=== PATIENT | male | born 1980 | race American Indian/Alaskan Native ===

== ENCOUNTER 2019-09-21 20:47 | Emergency (ER) | payer SELFPAY ==
[2019-09-21 21:11] VITALS: BP 101/65
== END 2019-09-21 22:30 | disposition left against medical advice (07) ==
LOC: ED 20:47
DX: R07.89 Other chest pain (principal); Z53.21 Procedure and treatment not carried out due to patient leaving prior to being seen by health care provider

== ENCOUNTER 2020-09-14 11:59 | Emergency (ER) | payer SELFPAY ==
[2020-09-14] MEDS ORDERED: ASPIRIN 325 MG TAB PO ONE (12:21)
[2020-09-14] MEDS ORDERED: SODIUM CHLORIDE 0.9% 1000 ML 1,000 ML IV ONE (12:21)
--- NOTE | 2020-09-14 12:22 | Event Note ---
ED Screening Note Date of service: 09/14/20 Time: 12:20 ED Screening Note: 39-year-old male with a history of tobacco abuse but no other significant past history presents to the ER today complaint of left-sided chest pain. Patient states that has been having the left-sided chest pain off and on for the past year. He states that he has never been evaluated for it before. He states that or concerning was that 3 weeks ago he started having intermittent lightheadedness not associated with the pain but he states that now he is having lightheadedness and the chest pain he decided to come in to get checked. He reports intermittent shortness of breath. He denies nausea, vomiting or diaphoresis. Patient is also a long-distance truck dispatcher. Denies any family history of coronary artery disease. This initial assessment/diagnostic orders/clinical plan/treatment(s) is/are subject to change based on patients health status, clinical progression and re- assessment by fellow clinical providers in the ED. Further treatment and workup at subsequent clinical providers discretion. Patient/guardian urged not to elope from the ED as their condition may be serious if not clinically assessed and managed. Initial orders include: Cardiac work-up including a D-dimer
[2020-09-14 12:39] LABS: Basophils % (Auto) 0.6 % (0.0-1.8); Eosinophils # (Auto) 0.2 K/mm3 (0.0-0.4); Eosinophils % (Auto) 5.6 % (0.0-4.3); Lymphocytes # (Auto) 1.8 K/mm3 (1.2-5.4); Lymphocytes % (Auto) 41.4 % (13.4-35.0); Mean Corpuscular HGB Conc 36 % (32-34); Mean Corpuscular Volume 95 fl (84-94); Monocytes # (Auto) 0.3 K/mm3 (0.0-0.8); Monocytes % (Auto) 6.5 % (0.0-7.3); Platelet Count 216 K/mm3 (140-440); Red Blood Count 4.09 M/mm3 (3.65-5.03); Red Cell Distribution Width 12.3 % (13.2-15.2)
[2020-09-14 12:46] LABS: Hematocrit 38.8 % (35.5-45.6); Hemoglobin 14.1 gm/dl (11.8-15.2)
[2020-09-14 12:49] LABS: INR 1.02 (0.87-1.13)
[2020-09-14 12:50] LABS: Partial Thromboplastin Time 31.4 Sec. (24.2-36.6)
--- NOTE | 2020-09-14 13:00 | XRay Report ---
CHEST 2 VIEWS INDICATION: Chest Pain. COMPARISON: None FINDINGS: SUPPORT DEVICES: None. HEART: Within normal limits. LUNGS/PLEURA: No acute air space or interstitial disease. No pneumothorax. ADDITIONAL FINDINGS: None. IMPRESSION: 1. No acute findings. Signer Name: Tiago Barrera MD Signed: 09/14/2020 12:56 PM Workstation Name: [id number]
--- NOTE | 2020-09-14 13:00 | Emergency Department Report ---
ED Chest Pain HPI - General Chief Complaint: Chest Pain Stated Complaint: CHEST PAIN/LIGHT HEAD Time Seen by Provider: 09/14/20 12:17 Source: patient Mode of arrival: Ambulatory Limitations: No Limitations - History of Present Illness Initial Comments: This is a 39-year-old male who presents to the emergency department for evaluation of left breast tightness. He states that it occurs at rest and has been going on for years. He actually presented to the emergency department about a year ago for similar complaint. However he states that it was too c rowded and he was not seen by a physician at left. He does not have a family physician. He is not been prior evaluated by a excel expert. Patient states that these episodes of chest tightness are not associated with a respiratory variation in pain, dyspnea, cough, nausea, vomiting, sweating. He did complain of some generalized lightheadedness to triage and medical screening but not to me. The patient has been previously concerned about these episodes of chest pain because he is a smoker. 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 He has had no leg pain or swelling. He has no history of DVT, PE or CAD. Likewise he has no family history of any of the above. He has no family physician either. MD Complaint: chest pain -: Gradual, year(s) Onset: during rest Pain Location: left chest (Left breast) Pain Radiation: none Quality: tightness Consistency: intermittent (Infrequently), now resolved Improves With: other (States it occurs when he smokes) Worsens With: other (Recurrence with smoking) re: denies: nausea, vomting, diaphoresis Other Symptoms: denies: cough, fever, syncope Treatments Prior to Arrival: none Aspirin use within the Past 7 Days: (0) No - Related Data Allergies Allergy/AdvReac Type Severity Reaction Status Date / Time No Known Allergies Allergy Unverified 09/14/20 12:15 Heart Score - HEART Score History: Slightly suspicious EKG: Normal Age: < 45 Risk factors: 1-2 risk factors Troponin: < normal limit HEART Score: 1 - Critical Actions Critical Actions: 0-3 pts:0.9-1.7%risk of adverse cardiac event.Candidate for discharge ED Review of Systems ROS: Stated complaint: CHEST PAIN/LIGHT HEAD Other details as noted in HPI Constitutional: denies: chills, fever Eyes: denies: eye pain, eye discharge, vision change ENT: denies: ear pain, throat pain Respiratory: denies: cough, shortness of breath, wheezing Cardiovascular: chest pain. denies: palpitations Endocrine: no symptoms reported Gastrointestinal: denies: abdominal pain, nausea, diarrhea Genitourinary: denies: urgency, dysuria Musculoskeletal: denies: back pain, joint swelling, arthralgia Skin: denies: rash, lesions Neurological: denies: headache, weakness, paresthesias Psychiatric: denies: anxiety, depression Hematological/Lymphatic: denies: easy bleeding, easy bruising ED Past Medical Hx - Past Medical History Previous Medical History?: No - Social History Smoking Status: Current Every Day Smoker Substance Use Type: Marijuana, Other (Denies other substance abuse) ED Physical Exam - General Limitations: No Limitations General appearance: alert, in no apparent distress - Head Head exam: Present: atraumatic, normocephalic - Eye Eye exam: Present: normal appearance. Absent: scleral icterus - ENT ENT exam: Present: mucous membranes moist - Neck Neck exam: Present: normal inspection - Respiratory Respiratory exam: Present: normal lung sounds bilaterally. Absent: respiratory distress - Cardiovascular Cardiovascular Exam: Present: regular rate, normal rhythm. Absent: systolic murmur, diastolic murmur, rubs, gallop - GI/Abdominal GI/Abdominal exam: Present: soft, normal bowel sounds. Absent: distended, tenderness, guarding, rebound - Rectal Rectal exam: Present: deferred - Extremities Exam Extremities exam: Present: normal inspection, normal capillary refill, other (Dorsalis pedis and posterior tibial pulses are 2+/2+ bilaterally). Absent: pedal edema, joint swelling, calf tenderness - Back Exam Back exam: Present: normal inspection - Neurological Exam Neurological exam: Present: alert, oriented X3, CN II-XII intact. Absent: motor sensory deficit - Psychiatric Psychiatric exam: Present: normal affect, normal mood - Skin Skin exam: Present: warm, dry, intact, normal color. Absent: rash ED Course Vital Signs 09/14/20 09/14/20 09/14/20 12:12 12:58 13:01 Temperature 98 F Pulse Rate 80 65 Respiratory 18 16 18 Rate Blood Pressure 122/79 110/70 O2 Sat by Pulse 98 98 98 Oximetry 09/14/20 09/14/20 13:15 13:26 Temperature Pulse Rate 65 Respiratory 18 18 Rate Blood Pressure 102/68 O2 Sat by Pulse 98 99 Oximetry - Reevaluation(s) Reevaluation #1: No complaints of recurrent pain. The patient was not inclined to repeat his troponin. I believe he has agreed to do so. Presuming that is negative he will certainly stratify to outpatient follow-up. Smoking cessation discussed. Risk factor reduction discussed. Daily aspirin recommended. 09/14/20 14:44 09/14/20 14:44 ANTONY score - Antony Score Age > 65: (0) No Aspirin use within the Past 7 Days: (0) No 3 or more CAD Risk Factors: (0) No 2 or more Angina events in past 24 hrs: (0) No Known CAD with more than 50% Stenosis: (0) No Elevated Cardiac Markers: (0) No ST Deviation Greater than 0.5mm: (0) No ANTONY Score: 0 ED Medical Decision Making - Lab Data Result diagrams: 09/14/20 12:28 09/14/20 14:32 Laboratory Results - last 24 hr 09/14/20 09/14/20 09/14/20 12:28 12:28 12:28 WBC 4.4 L RBC 4.09 Hgb 14.1 Hct 38.8 MCV 95 H MCH 34 H MCHC 36 H RDW 12.3 L Plt Count 216 Lymph % (Auto) 41.4 H Jackson % (Auto) 6.5 Eos % (Auto) 5.6 H Baso % (Auto) 0.6 Lymph # (Auto) 1.8 Jackson # (Auto) 0.3 Eos # (Auto) 0.2 Baso # (Auto) 0.0 Seg Neutrophils % 45.9 Seg Neutrophils # 2.0 PT 13.2 INR 1.02 APTT 31.4 D-Dimer 151.77 Troponin T < 0.010 Laboratory Results - last 24 hr 09/14/20 09/14/20 09/14/20 12:28 12:28 12:28 WBC 4.4 L RBC 4.09 Hgb 14.1 Hct 38.8 MCV 95 H MCH 34 H MCHC 36 H RDW 12.3 L Plt Count 216 Lymph % (Auto) 41.4 H Jackson % (Auto) 6.5 Eos % (Auto) 5.6 H Baso % (Auto) 0.6 Lymph # (Auto) 1.8 Jackson # (Auto) 0.3 Eos # (Auto) 0.2 Baso # (Auto) 0.0 Seg Neutrophils % 45.9 Seg Neutrophils # 2.0 PT 13.2 INR 1.02 APTT 31.4 D-Dimer 151.77 Troponin T < 0.010 Laboratory Results - last 24 hr 09/14/20 09/14/20 09/14/20 12:28 12:28 12:28 WBC 4.4 L RBC 4.09 Hgb 14.1 Hct 38.8 MCV 95 H MCH 34 H MCHC 36 H RDW 12.3 L Plt Count 216 Lymph % (Auto) 41.4 H Jackson % (Auto) 6.5 Eos % (Auto) 5.6 H Baso % (Auto) 0.6 Lymph # (Auto) 1.8 Jackson # (Auto) 0.3 Eos # (Auto) 0.2 Baso # (Auto) 0.0 Seg Neutrophils % 45.9 Seg Neutrophils # 2.0 PT 13.2 INR 1.02 APTT 31.4 D-Dimer 151.77 Sodium Potassium Chloride Carbon Dioxide Anion Gap BUN Creatinine Estimated GFR BUN/Creatinine Ratio Glucose Calcium Troponin T < 0.010 09/14/20 09/14/20 14:32 14:32 WBC RBC Hgb Hct MCV MCH MCHC RDW Plt Count Lymph % (Auto) Jackson % (Auto) Eos % (Auto) Baso % (Auto) Lymph # (Auto) Jackson # (Auto) Eos # (Auto) Baso # (Auto) Seg Neutrophils % Seg Neutrophils # PT INR APTT D-Dimer Sodium 139 Potassium 4.2 Chloride 106.3 Carbon Dioxide 27 Anion Gap 10 BUN 14 Creatinine 0.8 Estimated GFR > 60 BUN/Creatinine Ratio 18 Glucose 91 Calcium 8.2 L Troponin T < 0.010 - EKG Data -: EKG Interpreted by Nh EKG shows normal: sinus rhythm, axis, intervals, QRS complexes, ST-T waves Rate: normal - EKG Data Interpretation: other (Early repolarization, no acute findings) - Radiology Data Radiology results: report reviewed (No acute process) Critical care attestation.: If time is entered above; I have spent that time in minutes in the direct care of this critically ill patient, excluding procedure time. ED Disposition Clinical Impression: Atypical chest pain Disposition: - TO HOME OR SELFCARE Is pt being admited?: No Does the pt Need Aspirin: No Condition: Stable Instructions: Steps to Quit Smoking, [id number], Nonspecific Chest Pain, Adult, [id number], Chest Pain (ED) Additional Instructions: Would recommend daily baby aspirin. Certainly smoking cessation will decrease her risk of heart problems and various other medical conditions. See referrals for follow-up. Return to the emergency department any prolonged chest pain, acute change or symptom. Dr. Cruz is a excel expert. Dr. Perry is a primary care physician. Referrals: FER HELTON MD [Primary Care Provider] - 3-5 Days ALFIE CRUZ MD [Staff Physician] - 3-5 Days SANJIV PERRY MD [Staff Physician] - 3-5 Days Time of Disposition: 15:08
[2020-09-14 15:03] LABS: BUN/Creatinine Ratio 18; Blood Urea Nitrogen 14 mg/dL (9-20); Calcium 8.2 mg/dL (8.4-10.2); Hemolysis Index 10
[2020-09-14 15:28] VITALS: BP 106/73
== END 2020-09-14 15:36 | disposition home or self-care (01) ==
LOC: ED 11:59
DX: R07.89 Other chest pain (principal); F17.200 Nicotine dependence, unspecified, uncomplicated; F12.90 Cannabis use, unspecified, uncomplicated
CPT/HCPCS: 36415; 71046; 80048; 84484; 85025; 85379; 85610; 85730; 93005; 96360; 99284; J7030

== ENCOUNTER 2021-01-19 12:07 | Emergency (ER) | payer SELFPAY ==
--- NOTE | 2021-01-19 12:54 | Event Note ---
ED Screening Note Date of service: 01/19/21 Time: 12:54 ED Screening Note: Patient complains of chest pain and dizziness for 6 months Denies shortness of breath No past medical history per patient This initial assessment/diagnostic orders/clinical plan/treatment(s) is/are subject to change based on patients health status, clinical progression and re- assessment by fellow clinical providers in the ED. Further treatment and workup at subsequent clinical providers discretion. Patient/guardian urged not to elope from the ED as their condition may be serious if not clinically assessed and managed. Initial orders include: Labs EKG Chest x-ray
--- NOTE | 2021-01-19 13:32 | XRay Report ---
CHEST 2 VIEWS INDICATION / CLINICAL INFORMATION: chest pain. COMPARISON: 09/14/2020 FINDINGS: SUPPORT DEVICES: None. HEART / MEDIASTINUM: No significant abnormality. LUNGS / PLEURA: No significant pulmonary or pleural abnormality. No pneumothorax. ADDITIONAL FINDINGS: No significant additional findings. IMPRESSION: 1. No acute findings. Signer Name: Manoj Burris MD Signed: 01/19/2021 1:27 PM Workstation Name: [id number]
[2021-01-19 14:16] LABS: Basophils # (Auto) 0.1 K/mm3 (0.0-0.1); Eosinophils # (Auto) 0.2 K/mm3 (0.0-0.4); Eosinophils % (Auto) 3.6 % (0.0-4.3); Hematocrit 37.9 % (35.5-45.6); Hemoglobin 13.3 gm/dl (11.8-15.2); Lymphocytes # (Auto) 1.6 K/mm3 (1.2-5.4); Lymphocytes % (Auto) 32.6 % (13.4-35.0); Mean Corpuscular HGB Conc 35 % (32-34); Mean Corpuscular Volume 94 fl (84-94); Monocytes # (Auto) 0.3 K/mm3 (0.0-0.8); Monocytes % (Auto) 5.3 % (0.0-7.3); Platelet Count 225 K/mm3 (140-440); Red Blood Count 4.02 M/mm3 (3.65-5.03); Red Cell Distribution Width 12.1 % (13.2-15.2)
[2021-01-19 14:30] LABS: Alanine Aminotransferase 24 units/L (7-56); Albumin 4.8 g/dL (3.9-5); Blood Urea Nitrogen 20 mg/dL (9-20); Calcium 8.7 mg/dL (8.4-10.2); Hemolysis Index 4
[2021-01-19 14:31] LABS: BUN/Creatinine Ratio 29
--- NOTE | 2021-01-19 21:57 | Emergency Department Report ---
HPI - General Chief Complaint: Chest Pain Time Seen by Provider: 01/19/21 12:50 - HPI HPI: Room 25 The patient is a 40-year-old male present with a chief complaint of chest pain. The patient states he came to the emergency department for 2 reasons. Patient states first he has had intermittent lightheadedness and dizziness for the past 6 months. Patient states he came to the emergency department for this in the past and was told to stop smoking cigarettes. The patient states he also came into the ED because had chest pain for 1 day after smoking marijuana last night. Patient states he is never had a stress test or cardiac catheterization ED Past Medical Hx - Past Medical History Previous Medical History?: No - Surgical History Past Surgical History?: No - Family History Family history: no significant - Social History Smoking Status: Former Smoker (None x2 months) Substance Use Type: Alcohol (Occasional), Marijuana - Medications Home Medications: Home Medications Medication Instructions Recorded Confirmed Last Taken Type Famotidine [Pepcid] 20 mg PO BID #30 tablet 01/20/21 Unknown Rx Nicotine [Habitrol] 14 mg TD DAILY #20 patch 01/20/21 Unknown Rx ED Review of Systems ROS: Stated complaint: CHEST PAIN Other details as noted in HPI Constitutional: no symptoms reported Eyes: denies: eye pain ENT: denies: throat pain Respiratory: denies: shortness of breath Cardiovascular: chest pain Endocrine: no symptoms reported Gastrointestinal: denies: nausea Genitourinary: denies: dysuria Musculoskeletal: denies: back pain Neurological: denies: headache Physical Exam - Physical Exam Vital Signs: Vital Signs 01/19/21 01/19/21 12:47 21:48 Temperature 98.7 F 98.4 F Pulse Rate 84 78 Respiratory 18 18 Rate Blood Pressure 130/83 Blood Pressure 124/80 [Left] O2 Sat by Pulse 99 96 Oximetry Physical Exam: GENERAL: The patient is well-developed well-nourished male lying on stretcher not appearing to be in acute distress. [] HEENT: Normocephalic. Atraumatic. Extraocular motions are intact. Patient has moist mucous membranes. NECK: Supple. No meningitic signs are noted. There is no adenopathy noted. CHEST/LUNGS: Clear to auscultation. There is no respiratory distress noted. HEART/CARDIOVASCULAR: Regular. There is no tachycardia. There is no gallop rub or murmur. ABDOMEN: Abdomen is soft, nontender. Patient has normal bowel sounds. There is no abdominal distention. SKIN: There is no rash. There is no edema. There is no diaphoresis. NEURO: The patient is awake, alert, and oriented. The patient is cooperative. The patient has no focal neurologic deficits. The patient has normal speech. Cranial nerves II through XII grossly intact MUSCULOSKELETAL: There is no evidence of acute injury. ED Course Vital Signs 01/19/21 01/19/21 12:47 21:48 Temperature 98.7 F 98.4 F Pulse Rate 84 78 Respiratory 18 18 Rate Blood Pressure 130/83 Blood Pressure 124/80 [Left] O2 Sat by Pulse 99 96 Oximetry ED Medical Decision Making - Lab Data Result diagrams: 01/19/21 13:31 01/19/21 13:31 Laboratory Tests 01/19/21 01/19/21 01/19/21 13:31 13:31 13:31 WBC 4.9 RBC 4.02 Hgb 13.3 Hct 37.9 MCV 94 MCH 33 H MCHC 35 H RDW 12.1 L Plt Count 225 Lymph % (Auto) 32.6 Grant % (Auto) 5.3 Eos % (Auto) 3.6 Baso % (Auto) 2.0 H Lymph # (Auto) 1.6 Grant # (Auto) 0.3 Eos # (Auto) 0.2 Baso # (Auto) 0.1 Seg Neutrophils % 56.5 Seg Neutrophils # 2.8 D-Dimer Sodium 141 Potassium 4.2 Chloride 105.0 Carbon Dioxide 25 Anion Gap 15 BUN 20 Creatinine 0.7 L Estimated GFR > 60 BUN/Creatinine Ratio 29 Glucose 128 H Calcium 8.7 Total Bilirubin 0.50 AST 26 ALT 24 Alkaline Phosphatase 79 Troponin T < 0.010 < 0.010 Total Protein 7.4 Albumin 4.8 Albumin/Globulin Ratio 1.8 01/19/21 01/19/21 21:57 21:57 WBC RBC Hgb Hct MCV MCH MCHC RDW Plt Count Lymph % (Auto) Grant % (Auto) Eos % (Auto) Baso % (Auto) Lymph # (Auto) Grant # (Auto) Eos # (Auto) Baso # (Auto) Seg Neutrophils % Seg Neutrophils # D-Dimer 424.60 H Sodium Potassium Chloride Carbon Dioxide Anion Gap BUN Creatinine Estimated GFR BUN/Creatinine Ratio Glucose Calcium Total Bilirubin AST ALT Alkaline Phosphatase Troponin T < 0.010 Total Protein Albumin Albumin/Globulin Ratio - EKG Data -: EKG Interpreted by Me EKG shows normal: sinus rhythm Rate: normal - EKG Data When compared to previous EKG there are: no significant change Interpretation: unchanged when compared t (09/14/2020) - Radiology Data Radiology results: report reviewed (Chest x-ray, CT chest), image reviewed (Chest x-ray, CT chest) interpreted by me: Chest x-ray-no focal infiltrates, no pneumothorax. No foreign body seen [address] [address] XRay Report Signed Patient: KIAN HALL MR#: [id number] : 0 1980 Acct:[id number] Age/Sex: 40 / M ADM Date: 01/19/21 Loc: ED Attending Dr: Ordering Physician: PATRICIA LIZARRAGA Date of Service: 01/19/21 Procedure(s): XR chest routine 2V Accession Number(s): [id number] cc: PATRICIA LIZARRAGA Fluoro Time In Minutes: CHEST 2 VIEWS INDICATION / CLINICAL INFORMATION: chest pain. COMPARISON: 09/14/2020 FINDINGS: SUPPORT DEVICES: None. HEART / MEDIASTINUM: No significant abnormality. LUNGS / PLEURA: No significant pulmonary or pleural abnormality. No pneumothorax. ADDITIONAL FINDINGS: No significant additional findings. IMPRESSION: 1. No acute findings. Signer Name: Manoj Burris MD Signed: 01/19/2021 1:27 PM Workstation Name: [id number] Transcribed By: ROLLY Dictated By: Manoj Burris MD Electronically Authenticated By: Manoj Burris MD Signed Date/Time: 01/19/211326 DD/ 26 TD/TT: Print Cancel [address] [address] Cat Scan Report Signed Patient: KIAN HALL MR#: [id number] : 1980 Acct:[id number] Age/Sex: 40 / M ADM Date: 01/19/21 Loc: ED Attending Dr: Ordering Physician: SUSI FISH MD Date of Service: 01/19/21 Procedure(s): CT angio chest Accession Number(s): [id number] cc: SUSI FISH MD CTA CHEST WITH CONTRAST INDICATION / CLINICAL INFORMATION: Chest pain, shortness of breath. TECHNIQUE: Axial CT images were obtained through the chest after injection of IV contrast. 3 plane MIP and/or 3D reconstructions were produced. All CT scans at this location are performed using CT dose reduction for ALARA by means of automated exposure control. COMPARISON: None available. FINDINGS: PULMONARY ARTERIES: No central or segmental pulmonary embolus. THORACIC AORTA: No significant abnormality. HEART: No significant abnormality. ADENOPATHY: No significant adenopathy. LUNGS/PLEURA: No focal airspace consolidation. No pleural effusion. No pneumothorax. ADDITIONAL FINDINGS: None. UPPER ABDOMEN: No acute findings. SKELETAL STRUCTURES: No significant osseous abnormality. IMPRESSION: 1. No evidence for pulmonary embolism. 2. No acute findings. Signer Name: Grace Lagos MD Signed: 01/20/2021 1:10 AM Workstation Name: [id number] Transcribed By: JS Dictated By: GRACE LAGOS MD Electronically Authenticated By: GRACE LAGOS MD Signed Date/Time: 01/20/21109 DD/ 7 TD/TT: Print Cancel - Medical Decision Making Patient's information faxed to chest pain referral center for [facility] ([phone]) - Differential Diagnosis ACS, PE, pericarditis, GERD, costochondritis Critical care attestation.: If time is entered above; I have spent that time in minutes in the direct care of this critically ill patient, excluding procedure time. ED Disposition Clinical Impression: Atypical chest pain Disposition: - TO HOME OR SELFCARE Is pt being admited?: No Does the pt Need Aspirin: No Condition: Stable Instructions: Nonspecific Chest Pain, Adult Additional Instructions: Return to the emergency department should you develop worsening symptoms, inability to tolerate food or liquids, high fever or any other concerns Prescriptions: Nicotine [Habitrol] 14 mg TD DAILY #20 patch Famotidine [Pepcid] 20 mg PO BID #30 tablet Referrals: PRIMARY CARE, [Primary Care Provider] - 3-5 Days Time of Disposition: 01:36 Heart Score - HEART Score History: Slightly suspicious EKG: Normal Age: < 45 Risk factors: 1-2 risk factors Troponin: < normal limit HEART Score: 1 - EKG Read Time Time EKG Completed: 12:53 EKG Read Time: 12:56
--- NOTE | 2021-01-20 01:14 | Cat Scan Report ---
CTA CHEST WITH CONTRAST INDICATION / CLINICAL INFORMATION: Chest pain, shortness of breath. TECHNIQUE: Axial CT images were obtained through the chest after injection of IV contrast. 3 plane HI P and/or 3D reconstructions were produced. All CT scans at this location are performed using CT dose reduction for ALARA by means of automated exposure control. COMPARISON: None available. FINDINGS: PULMONARY ARTERIES: No central or segmental pulmonary embolus. THORACIC AORTA: No significant abnormality. HEART: No significant abnormality. ADENOPATHY: No significant adenopathy. LUNGS/PLEURA: No focal airspace consolidation. No pleural effusion. No pneumothorax. ADDITIONAL FINDINGS: None. UPPER ABDOMEN: No acute findings. SKELETAL STRUCTURES: No significant osseous abnormality. IMPRESSION: 1. No evidence for pulmonary embolism. 2. No acute findings. Signer Name: Ben Lagos MD Signed: 01/20/2021 1:10 AM Workstation Name: [id number]
[2021-01-20 01:36] VITALS: BP 115/60
--- NOTE | 2021-01-20 10:52 | Electrocardiograph Report ---
[facility] Test Date: 2021-01-19 Test Time: 12:53:49 Pat Name: KIAN HALL Department: ED Room: Gender: M Mink Slicer: LEE ANN : 1980 Requested By: PATRICIA LIZARRAGA Order Number: [id number] Reading MD: Mikey Villeda Measurements Intervals [place] Rate: 76 P: 17 AL: 183 QRS: 42 QRSD: 81 T: 23 QT: 364 QTc: 411 Interpretive Statements Sinus rhythm Abnrm R prog, consider ASMI or lead placement No previous ECG available for comparison Electronically Signed On 01-20-2021 10:51:47 EDT by Mikey Villeda
== END 2021-01-20 01:50 | disposition home or self-care (01) ==
LOC: ED 12:07
DX: R07.89 Other chest pain (principal); R42 Dizziness and giddiness; F12.90 Cannabis use, unspecified, uncomplicated; Z72.89 Other problems related to lifestyle; Z87.891 Personal history of nicotine dependence
CPT/HCPCS: 36415; 71046; 71275; 80053; 84484; 85025; 85379; 93005; 99284; Q9967